=== PATIENT | female | born 1935 | race Caucasian/White ===

== ENCOUNTER → 2016-03-16 | Outpatient (CLI) | payer MEDICARE, BC ==
[~2016-03-16] MED LIST: ASPI325T6 PO; BETAPACE 80MG80 MG PO; CALTRATE-600 W600 MG PO; COUMADIN 5MG5 MG/TAB PO; COUMADIN4 MG PO; FOSAMAX 70MG TA70 MG PO; LIPITOR20 MG PO; NYSTATIN POWDER30 GM TOP; PHENOBARBITAL100 M1 PO; TYLENOL 325MG325 MG PO; WARFARIN PO
== END ==
LOC: COL.VAS 12:11
DX: I08.1 Rheumatic disorders of both mitral and tricuspid valves (principal); R79.89 Other specified abnormal findings of blood chemistry

== ENCOUNTER 2017-01-04 10:00 | Outpatient (RCR) | payer MEDICARE, BC | END 2017-01-10 | LOC: MKS.ESL.PT | DX: R53.1 Weakness (principal); R26.89 Other abnormalities of gait and mobility; R29.6 Repeated falls; Z91.81 History of falling; F99 Mental disorder, not otherwise specified | CPT/HCPCS: G8978-GP; G8979-GP ==

== ENCOUNTER 2017-03-15 10:00 | Outpatient (RCR) | payer MEDICARE, BC ==
[2017-04-04] MEDS ORDERED: IPRATROPIUM BROM3 M1 IH (07:50)
[2017-04-04] MEDS ORDERED: ASPIRIN E.C. 8181 MG PO (07:52)
[2017-04-04] MEDS ORDERED: Florastor PO (07:53)
[2017-04-04] MEDS ORDERED: PROBIOTIC GOLD1 EACH PO (07:54)
[2017-04-04] MEDS ORDERED: PHENOBARBITAL100 M1 PO (07:54)
[2017-04-04] MEDS ORDERED: ELIQUIS 5MG PO (09:20)
[2017-04-04] MEDS ORDERED: LASIX 20MG TABL20 MG PO (09:21)
[2017-04-04] MEDS ORDERED: K-TAB20 PO (09:22)
== END 2017-04-08 | disposition home or self-care (01) ==
LOC: MKS.ESL.PT
DX: R53.1 Weakness (principal); Z91.81 History of falling

== ENCOUNTER 2017-03-25 13:56 | Inpatient (IN) | payer MEDICARE, BC ==
[~2017-03-25] VITALS: Ht 170.2 cm; Wt 92.3 kg
[2017-03-25 14:26] LABS: BASO % 0.3 % (0.0-2.0); EOS % 0.1 % (0-4.0); GRAN # 8.8 (1.4-6.5); GRAN % 76.1 % (42.2-75.2); HEMATOCRIT 39.2 % (37.0-47.0); LYMPH # 1.6 (1.2-3.4); LYMPH % 14.2 % (20.0-51.0); MEAN CELL VOLUME 105 fl (80.0-100.0); MEAN CORPUSCULAR HEMOGLOBIN 32 pg (27.0-31.0); MEAN CORPUSCULAR HGB CONC 31 g/dl (33.0-37.0); MEAN PLATELET VOLUME 11.9 fl (7.4-10.4); MONO % 8.5 % (1.7-9.3); PLATELET COUNT 216 K/mm3 (130-400); RED BLOOD COUNT 3.74 M/mm3 (4.10-5.30); REDCELL DISTRIBUTION WIDTH-CV 14.7 % (11.5-14.5)
[2017-03-25 14:37] LABS: ALBUMIN 4.2 gm/dL (3.5-5.0); BILIRUBIN,TOTAL 0.4 mg/dL (0.0-1.0); CALCIUM 10.3 mg/dL (8.4-10.2); CREATININE, serum 0.96 mg/dL (0.52-1.25); TOTAL PROTEIN 7.7 gm/dL (6.4-8.2)
[2017-03-25 14:55] LABS: TROPONIN-I 0.401 ng/mL (0.000-0.034)
[2017-03-25 15:38] LABS: COLLECTION METHOD CATHETER
[2017-03-25 16:04] LABS: MUCOUS Present /lpf; PH 5 (5-8); SQUAMOUS EPITHELIAL 0-2 /hpf; URINE APPEARANCE Clear; URINE BACTERIA None Seen /hpf; URINE BILIRUBIN Negative (NEGATIVE); URINE BLOOD Negative (NEGATIVE); URINE COLOR Amber; URINE GLUCOSE Negative (NEGATIVE); URINE KETONE Negative (NEGATIVE); URINE LEUKOCYTE ESTERASE Negative (NEGATIVE); URINE NITRATE Negative (NEGATIVE); URINE PROTEIN(semi-quant) 2+ (NEGATIVE)
[2017-03-25 17:10] VITALS: BP 132/72; PULSE 84; TEMP 98.9
[2017-03-25 18:20] LABS: MAGNESIUM 1.9 mg/dL (1.6-2.3)
[2017-03-25 18:25] LABS: INR 1.2 (0.8-3.0); PROTHROMBIN TIME 13.7 SECONDS (9.7-12.8)
[2017-03-25 18:28] LABS: PROLACTIN 25.5 ng/mL (3.0-18.6)
[2017-03-25 18:28] LABS: PARTIAL THROMBOPLASTIN TIME 29.4 SECONDS (26.0-37.0)
[2017-03-25 18:33] LABS: TROPONIN-I 3 HR POST INITIAL 0.382 ng/mL (0.000-0.034)
[2017-03-25 18:42] LABS: TSH w REFLEX 1.7 uIU/mL (0.465-4.680)
[2017-03-25 19:39] VITALS: BP 140/119; PULSE 110; TEMP 97.9
[2017-03-25 19:42] LABS: ARTERIAL BLD GAS O2 SATURATION 98.3 % (92-100); ARTERIAL BLD GAS TCO2 CT 37.6; ARTERIAL BLOOD GAS BASE EXCESS 6.4 (-2-2); ARTERIAL BLOOD GAS HCO3 35.3 meq/L (22-26); ARTERIAL BLOOD GAS pH 7.29 (7.35-7.45)
[2017-03-25 19:44] LABS: ARTERIAL BLOOD GAS PCO2 74.9 mmHg (35-45)
[2017-03-25 19:45] LABS: ARTERIAL BLOOD GAS PO2 150.1 mmHg (80-100)
[2017-03-25 21:56] VITALS: BP 141/92; PULSE 52
[2017-03-25 22:39] LABS: TROPONIN-I 6 HR POST INITIAL 0.335 ng/mL (0.000-0.034)
[2017-03-25 23:27] VITALS: BP 109/67; PULSE 70
[2017-03-26] VITALS (7 sets, daily range): BP systolic 73–133; BP diastolic 47–84; PULSE 59–94; TEMP 98–98.8
[2017-03-26 03:17] LABS: ARTERIAL BLOOD GAS pH 7.33 (7.35-7.45)
[2017-03-26 04:01] LABS: BASO # 0.1 (0.0-0.2); BASO % 0.4 % (0.0-2.0); EOS # 0.1 (0.0-0.7); EOS % 0.6 % (0-4.0); GRAN # 10.3 (1.4-6.5); GRAN % 77.1 % (42.2-75.2); HEMATOCRIT 38.7 % (37.0-47.0); HEMOGLOBIN 12.3 g/dl (12.5-16.0); LYMPH # 1.3 (1.2-3.4); LYMPH % 9.7 % (20.0-51.0); MEAN CELL VOLUME 101 fl (80.0-100.0); MEAN CORPUSCULAR HEMOGLOBIN 32 pg (27.0-31.0); MEAN CORPUSCULAR HGB CONC 32 g/dl (33.0-37.0); MEAN PLATELET VOLUME 12.1 fl (7.4-10.4); MONO # 1.6 (0.1-0.6); MONO % 11.6 % (1.7-9.3); PLATELET COUNT 183 K/mm3 (130-400); RED BLOOD COUNT 3.82 M/mm3 (4.10-5.30); REDCELL DISTRIBUTION WIDTH-CV 14.5 % (11.5-14.5)
[2017-03-26 04:10] LABS: BILIRUBIN,TOTAL 0.5 mg/dL (0.0-1.0); CREATININE, serum 0.73 mg/dL (0.52-1.25); POTASSIUM 3.5 mmol/L (3.4-5.0); TOTAL PROTEIN 7.3 gm/dL (6.4-8.2)
[2017-03-26 07:18] LABS: PARTIAL THROMBOPLASTIN TIME 73.2 SECONDS (26.0-37.0)
[2017-03-26 10:34] LABS: ARTERIAL BLD GAS O2 SATURATION 92.9 % (92-100); ARTERIAL BLOOD GAS BASE EXCESS 19.2 (-2-2); ARTERIAL BLOOD GAS HCO3 46.8 meq/L (22-26); ARTERIAL BLOOD GAS PO2 73.4 mmHg (80-100); ARTERIAL BLOOD GAS pH 7.45 (7.35-7.45)
[2017-03-26 10:37] LABS: ARTERIAL BLOOD GAS PCO2 69.1 mmHg (35-45)
[2017-03-26 14:17] LABS: FOLATE (FOLIC ACID) 16.7 ng/mL (7.0-31.4)
[2017-03-27] VITALS (389 sets, daily range): BP systolic 93–128; BP diastolic 44–73; PULSE 76–95; TEMP 97.5–98.5; O2SAT 95–100
[2017-03-27 03:46] LABS: PARTIAL THROMBOPLASTIN TIME 88.9 SECONDS (26.0-37.0)
[2017-03-27 06:34] LABS: BASO % 0.2 % (0.0-2.0); EOS # 0.1 (0.0-0.7); EOS % 0.6 % (0-4.0); GRAN # 8.7 (1.4-6.5); GRAN % 79.3 % (42.2-75.2); HEMATOCRIT 40.9 % (37.0-47.0); LYMPH # 1.1 (1.2-3.4); LYMPH % 9.8 % (20.0-51.0); MEAN CELL VOLUME 102 fl (80.0-100.0); MEAN CORPUSCULAR HEMOGLOBIN 32 pg (27.0-31.0); MEAN CORPUSCULAR HGB CONC 32 g/dl (33.0-37.0); MONO # 1.1 (0.1-0.6); MONO % 9.7 % (1.7-9.3); PLATELET COUNT 230 K/mm3 (130-400); RED BLOOD COUNT 4.02 M/mm3 (4.10-5.30); REDCELL DISTRIBUTION WIDTH-CV 14.2 % (11.5-14.5)
[2017-03-27 06:45] LABS: CALCIUM 8.9 mg/dL (8.4-10.2); CREATININE, serum 0.82 mg/dL (0.52-1.25)
[2017-03-27 07:00] LABS: POTASSIUM 2.9 mmol/L (3.4-5.0)
[2017-03-27 12:52] LABS: ARTERIAL BLD GAS O2 SATURATION 94.6 % (92-100); ARTERIAL BLD GAS TCO2 CT 48.2; ARTERIAL BLOOD GAS HCO3 46.1 meq/L (22-26); ARTERIAL BLOOD GAS PO2 77.3 mmHg (80-100); ARTERIAL BLOOD GAS pH 7.44 (7.35-7.45)
[2017-03-27 12:55] LABS: ARTERIAL BLOOD GAS PCO2 70.2 mmHg (35-45)
[2017-03-27 21:42] LABS: MAGNESIUM 2.1 mg/dL (1.6-2.3); POTASSIUM 3.6 mmol/L (3.4-5.0)
[2017-03-28] VITALS (1277 sets, daily range): BP systolic 102–122; BP diastolic 57–77; PULSE 84–110; TEMP 98.8–98.9; O2SAT 80–100
[2017-03-28 05:08] LABS: ARTERIAL BLD GAS O2 SATURATION 97.2 % (92-100); ARTERIAL BLD GAS TCO2 CT 41.3; ARTERIAL BLOOD GAS BASE EXCESS 12.1 (-2-2); ARTERIAL BLOOD GAS HCO3 39.4 meq/L (22-26); ARTERIAL BLOOD GAS PO2 100.8 mmHg (80-100); ARTERIAL BLOOD GAS pH 7.41 (7.35-7.45)
[2017-03-28 05:49] LABS: BASO % 0.2 % (0.0-2.0); EOS % 0.1 % (0-4.0); GRAN % 84.2 % (42.2-75.2); HEMATOCRIT 41.4 % (37.0-47.0); HEMOGLOBIN 13.1 g/dl (12.5-16.0); LYMPH # 0.9 (1.2-3.4); LYMPH % 5.2 % (20.0-51.0); MEAN CELL VOLUME 103 fl (80.0-100.0); MEAN CORPUSCULAR HEMOGLOBIN 33 pg (27.0-31.0); MEAN CORPUSCULAR HGB CONC 32 g/dl (33.0-37.0); MONO # 1.7 (0.1-0.6); MONO % 9.9 % (1.7-9.3); PLATELET COUNT 192 K/mm3 (130-400); RED BLOOD COUNT 4.03 M/mm3 (4.10-5.30); REDCELL DISTRIBUTION WIDTH-CV 14.3 % (11.5-14.5)
[2017-03-28 06:04] LABS: AMMONIA < 9 umol/L (11-35)
[2017-03-28 06:27] LABS: ALANINE AMINOTRANSFERASE 38 U/L (9-52); ALBUMIN 3.3 gm/dL (3.5-5.0); ALKALINE PHOSPHATASE 133 U/L (50-136); AST,SGOT 94 U/L (15-37); BILIRUBIN,TOTAL 0.4 mg/dL (0.0-1.0); BLOOD UREA NITROGEN 32 mg/dL (7-17); CALCIUM 8.8 mg/dL (8.4-10.2); CHLORIDE 91 mmol/L (98-107); CREATININE, serum 0.68 mg/dL (0.52-1.25); GLUCOSE 108 mg/dL (74-106); MAGNESIUM 1.9 mg/dL (1.6-2.3); POTASSIUM 3.8 mmol/L (3.4-5.0); SODIUM 141 mmol/L (137-145); TOTAL PROTEIN 6.3 gm/dL (6.4-8.2)
[2017-03-28 06:37] LABS: ANION GAP 8 mmol/L (7-16); CARBON DIOXIDE 42 mmol/L (22-30)
[2017-03-29] VITALS (947 sets, daily range): BP systolic 102–145; BP diastolic 57–98; PULSE 97–115; TEMP 98.7–98.9; O2SAT 73–100
[2017-03-29 06:10] LABS: HEMATOCRIT 39.1 % (37.0-47.0); HEMOGLOBIN 12.3 g/dl (12.5-16.0); MEAN CELL VOLUME 103 fl (80.0-100.0); MEAN CORPUSCULAR HEMOGLOBIN 32 pg (27.0-31.0); MEAN CORPUSCULAR HGB CONC 32 g/dl (33.0-37.0); MEAN PLATELET VOLUME 12.6 fl (7.4-10.4); PLATELET COUNT 182 K/mm3 (130-400); REDCELL DISTRIBUTION WIDTH-CV 14.5 % (11.5-14.5)
[2017-03-29 06:19] LABS: CALCIUM 8.1 mg/dL (8.4-10.2); CREATININE, serum 0.55 mg/dL (0.52-1.25); POTASSIUM 3.2 mmol/L (3.4-5.0)
[2017-03-29 08:45] LABS: BAND 5 % (0-10); EOSINOPHIL 1 % (0-4); LYMPHOCYTE 11 % (20.0-51.0); METAMYELOCYTE 1 % (0-0); NEUTROPHILS 79 % (42.0-75.2); PLATELET ESTIMATE NORMAL (NORMAL)
[2017-03-29 09:23] LABS: ALANINE AMINOTRANSFERASE 31 U/L (9-52); ALKALINE PHOSPHATASE 115 U/L (50-136); AST,SGOT 71 U/L (15-37)
[2017-03-30 00:05] VITALS: BP 127/58; PULSE 87; TEMP 98.6
[2017-03-30 06:32] VITALS: BP 135/80; PULSE 117; TEMP 98.3
[2017-03-30 12:27] VITALS: BP 144/75; PULSE 79; TEMP 97.5
[2017-03-30 17:39] VITALS: BP 137/86; PULSE 114; TEMP 99.2
[2017-03-31 00:40] VITALS: BP 130/32; PULSE 75; TEMP 98.5
[2017-03-31 05:00] VITALS: BP 138/71; PULSE 74; TEMP 98.6
[2017-03-31 07:34] LABS: HEMATOCRIT 38.5 % (37.0-47.0); HEMOGLOBIN 12.2 g/dl (12.5-16.0); MEAN CELL VOLUME 101 fl (80.0-100.0); MEAN CORPUSCULAR HEMOGLOBIN 32 pg (27.0-31.0); MEAN CORPUSCULAR HGB CONC 32 g/dl (33.0-37.0); MEAN PLATELET VOLUME 11.9 fl (7.4-10.4); PLATELET COUNT 252 K/mm3 (130-400); RED BLOOD COUNT 3.82 M/mm3 (4.10-5.30)
[2017-03-31 07:53] LABS: CALCIUM 7.7 mg/dL (8.4-10.2); CREATININE, serum 0.59 mg/dL (0.52-1.25); MAGNESIUM 1.7 mg/dL (1.6-2.3); PHOSPHOROUS 2.5 mg/dL (2.5-4.5); POTASSIUM 3.6 mmol/L (3.4-5.0)
[2017-03-31 08:31] VITALS: BP 141/93; PULSE 95; TEMP 98.4
[2017-03-31 12:40] VITALS: BP 103/72; PULSE 115; TEMP 97.7
[2017-03-31 16:00] VITALS: BP 128/76; PULSE 112; TEMP 98.2
[2017-03-31 21:12] VITALS: BP 108/77; PULSE 98; TEMP 98.4
[2017-04-01] VITALS (7 sets, daily range): BP systolic 101–116; BP diastolic 50–80; PULSE 72–123; TEMP 97.6–98.9
[2017-04-01 05:24] LABS: ARTERIAL BLD GAS O2 SATURATION 92.5 % (92-100); ARTERIAL BLOOD GAS BASE EXCESS 4.4 (-2-2); ARTERIAL BLOOD GAS HCO3 28.7 meq/L (22-26); ARTERIAL BLOOD GAS PCO2 42.1 mmHg (35-45); ARTERIAL BLOOD GAS PO2 62.2 mmHg (80-100); ARTERIAL BLOOD GAS pH 7.45 (7.35-7.45)
[2017-04-01 07:22] LABS: BASO % 0.3 % (0.0-2.0); EOS # 0.1 (0.0-0.7); EOS % 0.4 % (0-4.0); GRAN # 8.8 (1.4-6.5); GRAN % 77.3 % (42.2-75.2); HEMATOCRIT 37.5 % (37.0-47.0); LYMPH # 1.1 (1.2-3.4); LYMPH % 9.4 % (20.0-51.0); MEAN CELL VOLUME 100 fl (80.0-100.0); MEAN CORPUSCULAR HEMOGLOBIN 32 pg (27.0-31.0); MEAN CORPUSCULAR HGB CONC 32 g/dl (33.0-37.0); MEAN PLATELET VOLUME 12.2 fl (7.4-10.4); MONO # 1.4 (0.1-0.6); PLATELET COUNT 277 K/mm3 (130-400); RED BLOOD COUNT 3.75 M/mm3 (4.10-5.30); REDCELL DISTRIBUTION WIDTH-CV 14.3 % (11.5-14.5)
[2017-04-01 07:27] LABS: CALCIUM 7.6 mg/dL (8.4-10.2); CREATININE, serum 0.61 mg/dL (0.52-1.25); POTASSIUM 3.3 mmol/L (3.4-5.0)
[2017-04-01 08:26] LABS: MAGNESIUM 2.1 mg/dL (1.6-2.3); PHOSPHOROUS 1.9 mg/dL (2.5-4.5)
[2017-04-02 00:41] VITALS: BP 123/77; PULSE 72; TEMP 97.5
[2017-04-02 04:50] VITALS: BP 114/59; PULSE 114; TEMP 98.3
[2017-04-02 06:41] LABS: BASO % 0.4 % (0.0-2.0); EOS # 0.1 (0.0-0.7); EOS % 0.7 % (0-4.0); GRAN # 8.1 (1.4-6.5); GRAN % 74.5 % (42.2-75.2); HEMATOCRIT 38.3 % (37.0-47.0); LYMPH # 1.2 (1.2-3.4); LYMPH % 10.8 % (20.0-51.0); MEAN CELL VOLUME 102 fl (80.0-100.0); MEAN CORPUSCULAR HEMOGLOBIN 32 pg (27.0-31.0); MEAN CORPUSCULAR HGB CONC 31 g/dl (33.0-37.0); MEAN PLATELET VOLUME 12.4 fl (7.4-10.4); MONO # 1.4 (0.1-0.6); MONO % 13.1 % (1.7-9.3); PLATELET COUNT 302 K/mm3 (130-400); RED BLOOD COUNT 3.77 M/mm3 (4.10-5.30); REDCELL DISTRIBUTION WIDTH-CV 14.4 % (11.5-14.5)
[2017-04-02 07:07] LABS: CALCIUM 7.5 mg/dL (8.4-10.2); CREATININE, serum 0.62 mg/dL (0.52-1.25); MAGNESIUM 1.8 mg/dL (1.6-2.3); PHOSPHOROUS 2.6 mg/dL (2.5-4.5); POTASSIUM 3.7 mmol/L (3.4-5.0)
[2017-04-02 08:37] VITALS: BP 123/79; PULSE 117; TEMP 97.2
[2017-04-02 11:27] VITALS: BP 122/78; PULSE 93; TEMP 98
[2017-04-02 17:28] VITALS: BP 123/63; PULSE 103; TEMP 98.4
[2017-04-02 19:18] VITALS: BP 119/59; PULSE 112; TEMP 98.6
[2017-04-03 00:09] VITALS: BP 108/57; PULSE 118; TEMP 98.7
[2017-04-03 04:31] VITALS: BP 110/62; PULSE 110; TEMP 99.1
[2017-04-03 07:48] VITALS: BP 103/63; PULSE 130; TEMP 98.5
[2017-04-03 11:39] VITALS: BP 105/52; PULSE 86; TEMP 97.6
[2017-04-03 15:30] VITALS: BP 113/68; PULSE 110; TEMP 98.7
[2017-04-03 19:38] VITALS: BP 118/79; PULSE 112; TEMP 98.3
[2017-04-04 00:25] VITALS: BP 116/66; PULSE 84; TEMP 98.2
[2017-04-04 05:25] VITALS: BP 115/73; PULSE 98; TEMP 98.1
[2017-04-04 07:12] LABS: BASO % 0.4 % (0.0-2.0); EOS # 0.1 (0.0-0.7); EOS % 1.1 % (0-4.0); GRAN # 5.1 (1.4-6.5); GRAN % 72.9 % (42.2-75.2); LYMPH % 13.6 % (20.0-51.0); MEAN CELL VOLUME 99 fl (80.0-100.0); MEAN CORPUSCULAR HGB CONC 32 g/dl (33.0-37.0); MEAN PLATELET VOLUME 12.3 fl (7.4-10.4); MONO # 0.8 (0.1-0.6); MONO % 11.6 % (1.7-9.3); PLATELET COUNT 377 K/mm3 (130-400); RED BLOOD COUNT 3.47 M/mm3 (4.10-5.30); REDCELL DISTRIBUTION WIDTH-CV 13.8 % (11.5-14.5)
[2017-04-04 07:19] LABS: CALCIUM 8.1 mg/dL (8.4-10.2); CREATININE, serum 0.56 mg/dL (0.52-1.25); MAGNESIUM 1.6 mg/dL (1.6-2.3); PHOSPHOROUS 2.7 mg/dL (2.5-4.5); POTASSIUM 3.1 mmol/L (3.4-5.0)
[2017-04-04 07:31] LABS: HEMATOCRIT 34.4 % (37.0-47.0); MEAN CORPUSCULAR HEMOGLOBIN 32 pg (27.0-31.0)
[2017-04-04] MEDS ORDERED: IPRATROPIUM BROM3 M1 IH (07:50)
[2017-04-04] MEDS ORDERED: ASPIRIN E.C. 8181 MG PO (07:52)
[2017-04-04] MEDS ORDERED: Florastor PO (07:53)
[2017-04-04] MEDS ORDERED: PROBIOTIC GOLD1 EACH PO (07:54)
[2017-04-04] MEDS ORDERED: PHENOBARBITAL100 M1 PO (07:54)
[2017-04-04 08:45] VITALS: BP 115/78; PULSE 110; TEMP 97.9
[2017-04-04] MEDS ORDERED: ELIQUIS 5MG PO (09:20)
[2017-04-04] MEDS ORDERED: LASIX 20MG TABL20 MG PO (09:21)
[2017-04-04] MEDS ORDERED: K-TAB20 PO (09:22)
[2017-04-04 12:37] VITALS: BP 125/45; PULSE 94; TEMP 98.1
== END 2017-04-04 16:00 | DRG 70 ==
LOC: COL.ER 13:56 → MEDICAL 15:41 → ICU 03-27 15:34 → MEDICAL 03-29 17:37
PROVIDERS: Family Medicine; Internal Medicine; Internal Medicine Interventional Cardiology; Internal Medicine Pulmonary Disease; Nurse Practitioner Family; Physician Assistant
PROC: 0DH67UZ Insertion of Feeding Device into Stomach, Via Natural or Artificial Opening (ICD-10-PCS; principal; 2017-04-01)
DX: G93.41 Metabolic encephalopathy (principal); J96.01 Acute respiratory failure with hypoxia; I50.33 Acute on chronic diastolic (congestive) heart failure; J96.02 Acute respiratory failure with hypercapnia; I21.A1 Myocardial infarction type 2; K56.7 Ileus, unspecified; E72.20 Disorder of urea cycle metabolism, unspecified; E87.0 Hyperosmolality and hypernatremia; E87.4 Mixed disorder of acid-base balance; G40.409 Other generalized epilepsy and epileptic syndromes, not intractable, without status epilepticus; I11.0 Hypertensive heart disease with heart failure; I48.2 Chronic atrial fibrillation; I27.22 Pulmonary hypertension due to left heart disease; E87.6 Hypokalemia; E83.39 Other disorders of phosphorus metabolism; E83.42 Hypomagnesemia; D64.9 Anemia, unspecified
CPT/HCPCS: 99223-AI; 99232-AI; 99233-AI; 99239; J1644; J1650; J1940; J2270; J3475; J3480; J7030; J7050; J7060; J7070

== ENCOUNTER → 2017-04-02 | Outpatient (REF) ==
[2017-04-02 13:32] LABS: HIV 1/2 Antibodies Non-Reactive; HIV-1p24 Antigen Non-Reactive
[2017-04-02 23:39] LABS: HEPATITIS B SURFACE ANTIGEN Negative (()); HEPATITIS C VIRUS ANTIBODY Negative (())
== END ==
LOC: COL.LAB 11:59
PROVIDERS: Physician Assistant
DX: Z01.89 Encounter for other specified special examinations (principal)

== ENCOUNTER 2017-04-07 13:58 | Observation (INO) | payer MEDICARE, BC ==
[~2017-04-07] VITALS: Ht 175.3 cm; Wt 118.2 kg
[~2017-04-07 13:58] MED LIST changes: +ASPIRIN E.C. 8181 MG PO; +ELIQUIS 5MG PO; +Florastor PO; +IPRATROPIUM BROM3 M1 IH; +K-TAB20 PO; +LASIX 20MG TABL20 MG PO; +PROBIOTIC GOLD1 EACH PO
[2017-04-07 14:02] VITALS: TEMP 99.6
[2017-04-07 14:26] LABS: HEMATOCRIT 38.5 % (37.0-47.0); HEMOGLOBIN 12.5 g/dl (12.5-16.0); MEAN CELL VOLUME 100 fl (80.0-100.0); MEAN CORPUSCULAR HEMOGLOBIN 32 pg (27.0-31.0); MEAN CORPUSCULAR HGB CONC 33 g/dl (33.0-37.0); MEAN PLATELET VOLUME 11.9 fl (7.4-10.4); PLATELET COUNT 509 K/mm3 (130-400); RED BLOOD COUNT 3.87 M/mm3 (4.10-5.30); REDCELL DISTRIBUTION WIDTH-CV 13.6 % (11.5-14.5)
[2017-04-07 14:35] LABS: COLLECTION METHOD CATHETER
[2017-04-07 14:54] LABS: INR 1.6 (0.8-3.0); PROTHROMBIN TIME 18.5 SECONDS (9.7-12.8)
[2017-04-07 14:57] LABS: PH 6 (5-8); URINE APPEARANCE Cloudy; URINE BILIRUBIN Negative (NEGATIVE); URINE BLOOD 2+ (NEGATIVE); URINE COLOR Yellow; URINE GLUCOSE Negative (NEGATIVE); URINE KETONE 1+ (NEGATIVE); URINE LEUKOCYTE ESTERASE 2+ (NEGATIVE); URINE NITRATE Positive (NEGATIVE); URINE PROTEIN(semi-quant) 1+ (NEGATIVE); URINE UROBILINOGEN Negative (NEGATIVE)
[2017-04-07 14:57] LABS: PARTIAL THROMBOPLASTIN TIME 30.4 SECONDS (26.0-37.0)
[2017-04-07 15:01] LABS: MUCOUS Present /lpf; URINE BACTERIA Rare /hpf
[2017-04-07 15:05] LABS: ALANINE AMINOTRANSFERASE 47 U/L (9-52); ALBUMIN 3.5 gm/dL (3.5-5.0); ALKALINE PHOSPHATASE 97 U/L (50-136); ANION GAP 10 mmol/L (7-16); AST,SGOT 55 U/L (15-37); BILIRUBIN,TOTAL 0.6 mg/dL (0.0-1.0); BLOOD UREA NITROGEN 24 mg/dL (7-17); CALCIUM 9.6 mg/dL (8.4-10.2); CARBON DIOXIDE 34 mmol/L (22-30); CHLORIDE 97 mmol/L (98-107); CREATINE KINASE 45 U/L (30-135); CREATININE, serum 0.59 mg/dL (0.52-1.25); GLUCOSE 118 mg/dL (74-106); LIPASE 297 U/L (23-300); POTASSIUM 3.9 mmol/L (3.4-5.0); SODIUM 142 mmol/L (137-145); TOTAL PROTEIN 7.1 gm/dL (6.4-8.2)
[2017-04-07 15:15] LABS: BAND 12 % (0-10); BASOPHIL 1 % (0-2); LYMPHOCYTE 3 % (20.0-51.0); NEUTROPHILS 81 % (42.0-75.2); PLATELET ESTIMATE INCREASED (NORMAL)
[2017-04-07 15:17] LABS: TROPONIN-I < 0.012 ng/mL (0.000-0.034)
[2017-04-07 15:30] VITALS: BP 122/77; PULSE 84
== END 2017-04-08 16:55 | disposition expired ==
LOC: COL.ER 13:58 → MEDICAL 15:10
PROVIDERS: Emergency Medicine
DX: I61.9 Nontraumatic intracerebral hemorrhage, unspecified (principal); I10 Essential (primary) hypertension; G93.5 Compression of brain; Z51.5 Encounter for palliative care; D72.825 Bandemia; M81.0 Age-related osteoporosis without current pathological fracture; I48.91 Unspecified atrial fibrillation; I27.20 Pulmonary hypertension, unspecified; D47.3 Essential (hemorrhagic) thrombocythemia; E03.9 Hypothyroidism, unspecified; Z79.82 Long term (current) use of aspirin; Z79.01 Long term (current) use of anticoagulants; R56.9 Unspecified convulsions; Z66 Do not resuscitate
CPT/HCPCS: 99231-AI; G0378